=== PATIENT | male | born 1970 | race Caucasian/White ===

== ENCOUNTER 2018-07-08 19:46 | Emergency (ER) | payer MEDICAID ==
[~2018-07-08] VITALS: Ht 180.3 cm; Wt 72.7 kg
[~2018-07-08 19:46] MED LIST: ONDA8TAB6 PO
[2018-07-08 20:16] LABS: BASOPHILS % (AUTO) 0.3 % (0-1); EOSINOPHILS # (AUTO) 0.1 X10'3 (0-0.9); EOSINOPHILS % (AUTO) 1.5 % (0-6); LYMPHOCYTES % (AUTO) 31.5 % (21-51); MEAN CORPUSCULAR HEMOGLOBIN 31.7 PG (27.0-31.0); MEAN CORPUSCULAR HGB CONC 34.1 % (33.0-36.5); MEAN PLATELET VOLUME 7.4 FL (7.4-10.4); MONOCYTES # (AUTO) 0.6 X10'3 (0-0.9); MONOCYTES % (AUTO) 8.9 % (2-12); NEUTROPHILS # (AUTO) 3.7 X10'3 (1.8-7.7); NEUTROPHILS % (AUTO) 57.8 % (42-75); PLATELET COUNT 286 X10'3 (140-440); RED CELL DISTRIBUTION WIDTH 12.4 % (11.5-14.5); WHITE BLOOD COUNT 6.4 X10'3 (4.5-11.0)
[2018-07-08 20:32] LABS: ALANINE AMINOTRANSFERASE 21 U/L (12-78); ALBUMIN/GLOBULIN RATIO 1.3 (1.1-1.5); ALKALINE PHOSPHATASE 80 IU/L (46-116); ANION GAP 9 (8-16); ASPARTATE AMINO TRANSFERASE 14 U/L (10-37); BILIRUBIN,TOTAL 0.4 MG/DL (0.1-1.0); BLOOD UREA NITROGEN 9 MG/DL (7-18); BUN/CREATININE RATIO 7.4 (5.4-32.0); CALCIUM 8.9 MG/DL (8.5-10.1); CHLORIDE 101 MMOL/L (99-107); CREATININE 1.21 MG/DL (0.60-1.10); GLUCOSE 114 MG/DL (70-104); INR 1.1 INR; PARTIAL THROMBOPLASTIN TIME 30 SECONDS (22-32); POTASSIUM 4.1 MMOL/L (3.5-5.1); PROTHROMBIN TIME 11.1 SECONDS (9.0-12.0); SODIUM 138 MMOL/L (135-145); TOTAL CARBON DIOXIDE 27.9 MMOL/L (24-32); eGFR 64 ML/MIN
[2018-07-08 22:31] VITALS: BP 138/64
== END 2018-07-08 23:43 | disposition home or self-care (01) ==
LOC: ER 19:47
DX: R07.89 Other chest pain (principal); R06.02 Shortness of breath; Z88.8 Allergy status to other drugs, medicaments and biological substances; Z56.0 Unemployment, unspecified
CPT/HCPCS: 36415; 71045; 80053; 84484; 85025; 85610; 85730; 93005; 99284

== ENCOUNTER 2018-10-17 05:22 | Inpatient (IN) | payer MEDICAID ==
[2018-10-14 13:48] LABS: CLARITY,URINE CLEAR (Clear); COLOR,URINE STRAW (Yellow); GLUCOSE, URINE NEGATIVE (Neg); KETONES,URINE NEGATIVE (Neg); LEUKOCYTE ESTERASE ,URINE NEGATIVE (Neg); NITRITES, URINE NEGATIVE (Neg); OCCULT BLOOD,URINE NEGATIVE (Neg); PH,URINE 6.5 (4.8-8.0); PROTEIN,URINE NEGATIVE (Neg); UA COLLECTION TYPE CLN CATCH MIDSTREAM; UROBILINOGEN,URINE 0.2 E.U/dL (0.2-1.0)
[2018-10-14 13:52] LABS: BASOPHILS % (AUTO) 0.4 % (0-1); EOSINOPHILS % (AUTO) 0.7 % (0-6); LYMPHOCYTES # (AUTO) 1.9 X10'3 (1.1-4.8); LYMPHOCYTES % (AUTO) 26.8 % (21-51); MEAN CORPUSCULAR HEMOGLOBIN 31.2 PG (27.0-31.0); MEAN CORPUSCULAR HGB CONC 34.4 g/dL (33.0-36.5); MEAN CORPUSCULAR VOLUME 90.6 FL (78-98); MEAN PLATELET VOLUME 7.7 FL (7.4-10.4); MONOCYTES # (AUTO) 0.5 X10'3 (0-0.9); MONOCYTES % (AUTO) 6.6 % (2-12); NEUTROPHILS # (AUTO) 4.5 X10'3 (1.8-7.7); NEUTROPHILS % (AUTO) 65.5 % (42-75); PRE OP HEMATOCRIT 40.6 % (42.0-52.0); PRE OP PLATELET COUNT 261 X10'3 (140-440); RED BLOOD COUNT 4.48 X10'6 (4.70-6.10); RED CELL DISTRIBUTION WIDTH 12.5 % (11.5-14.5)
[2018-10-14 13:57] LABS: ALBUMIN 4.2 G/DL (3.4-5.0); ALBUMIN/GLOBULIN RATIO 1.4 (1.1-1.5); ALKALINE PHOSPHATASE 74 IU/L (46-116); BLOOD UREA NITROGEN 12 MG/DL (7-18); BUN/CREATININE RATIO 13.5 (5.4-32.0); CALCIUM 8.9 MG/DL (8.5-10.1); CHLORIDE 105 MMOL/L (99-107); CREATININE 0.89 MG/DL (0.60-1.10); PRE OP ALT 20 U/L (30-65); PRE OP ANION GAP 4 (8-16); PRE OP AST 18 U/L (10-37); PRE OP BILIRUB, TOTAL 0.3 MG/DL (0.0-1.0); PRE OP GLUCOSE 81 MG/DL (70-104); PRE OP SODIUM 141 MMOL/L (135-145); TOTAL CARBON DIOXIDE 32.1 MMOL/L (24-32); TOTAL PROTEIN 7.1 G/DL (6.4-8.2); eGFR > 90 ML/MIN
[2018-10-14 14:02] LABS: PRE OP INR 1.1 INR; PRE OP PROTIME 10.8 SECONDS (9.0-12.0)
[2018-10-17] VITALS (27 sets, daily range): BP systolic 114–157; BP diastolic 54–82
[~2018-10-17] VITALS: Ht 180.3 cm; Wt 78.3 kg
[~2018-10-17 05:22] MED LIST changes: +NO HOME MEDS; -ONDA8TAB6 PO; +cefazolin/dext.iso 2gm/50ml 50 ML IV ONE; +famotidine 20mg tablet PO ONE; +ringers solution, lacted 1,000 ML IV SCH
[2018-10-17] MEDS ORDERED: cefazolin/dext.iso 2gm/50ml 50 ML IV ONE (05:30)
[2018-10-17] MEDS ORDERED: famotidine 20mg tablet PO ONE (05:30)
[2018-10-17] MEDS ORDERED: LIDOcaine 1% (10mg/ml) 2ml vial ONE ×2 (05:43→06:38)
[2018-10-17] MEDS ORDERED: midazolam 2 mg/2 ml injection ONE (07:42)
[2018-10-17] MEDS ORDERED: fentaNYL /PF 50mcg/ml 5ml ampule ONE (07:43)
[2018-10-17] MEDS ORDERED: sevoflurane 250ml liquid IH ONE (07:57)
[2018-10-17] MEDS ORDERED: naloxone 2mg/2ml inj 1.5 MG in normal saline 500ml IV soln 500 ML IV PRN (09:54)
[2018-10-17] MEDS ORDERED: ringers solution, lacted 1,000 ML IV SCH (09:54)
[2018-10-17] MEDS ORDERED: proCHLORperazine 10 MG/2 ml inj IV PRN (09:55)
[2018-10-17] MEDS ORDERED: morphine 4 MG/ML inj SYRINge IV PRN ×3 (09:55→10:50)
[2018-10-17] MEDS ORDERED: meperidine/PF 25mg/ml syringe IV PRN ×2 (09:55)
[2018-10-17] MEDS ORDERED: ondansetron/PF 4mg/2ml inj IV PRN ×2 (09:55→10:50)
[2018-10-17] MEDS ORDERED: BUPIVAcaine/PF 2.5mg/ml (0.25%) 10ml vial ONE (09:59)
[2018-10-17] MEDS ORDERED: glycopyrrolate 0.2mg/ml inj ONE (10:06)
[2018-10-17] MEDS ORDERED: rocuronium 10mg/ml inj IV ONE (10:06)
[2018-10-17] MEDS ORDERED: ondansetron/PF 4mg/2ml inj ONE (10:06)
[2018-10-17] MEDS ORDERED: propofol inj 20 ML IV ONE (10:06)
[2018-10-17] MEDS ORDERED: pancuronium br 1mg/ml inj IV ONE (10:06)
[2018-10-17] MEDS ORDERED: neostigmine methylsulfate 1 MG/ML 10ml vial ONE (10:06)
[2018-10-17] MEDS ORDERED: LIDOcaine 2% (20mg/ml) 5ml vial ONE (10:06)
[2018-10-17] MEDS ORDERED: fentaNYL/PF 50MCG/1 ML 2ML syringe ONE (10:16)
[2018-10-17] MEDS ORDERED: meperidine/PF 50mg/ml syringe ONE (10:34)
--- NOTE | 2018-10-17 10:40 | NUR ---
Received from OR via BED, accompanied by Anesthesiologist DR GUZMAN and report given by Anesthesiolgist. PATIENT A&OX4, C/O PAIN, V/S WNL, NEUROVASCULAR CHECKS INTACT, 20G PIV LUE, SCD ON, DRESSING CHEST TUBE TO RIGHT SIDE CDI. RIGHT SIDE CHEST TUBE DRESSING CDI, 600CC IN DRAIN DR DAVIS AWARE, ORDER TO KEEP SBP/P BELOW 150. HYDRALIZINE TO BE GIVEN PRN. F.C DRAINING CLEAR YELLOW URINE. CENTRAL LINE TO RIGHT NECK TRIPLE LUMEN, ARTLINE TO RUE. EPIDURAL RUNNING ORDERED. MEDS GIVEN FOR PAIN SEE EMAR.
[2018-10-17] MEDS: morphine 4 MG/ML inj SYRINge IV PRN ×9 (10:49→22:24)
[2018-10-17] MEDS ORDERED: metoclopramide 5 mg/ml inj IV PRN (10:50)
[2018-10-17] MEDS ORDERED: albuterol 2.5 MG/3 ML nebule NEB PRN (10:50)
[2018-10-17] MEDS: meperidine/PF 25mg/ml syringe IV PRN ×4 (10:50→11:32)
[2018-10-17] MEDS ORDERED: naloxone 0.4 mg/ml inj IV PRN (10:50)
[2018-10-17] MEDS ORDERED: HYDROcodone/acetaminophen 10/325mg tab PO PRN ×2 (10:50)
[2018-10-17] MEDS ORDERED: hydrALAZINE 20mg/ml inj. IV ONE (10:57)
[2018-10-17] MEDS: morphine/PF injection 20 MG, BUPIVAcaine 0.5% inj/PF 250 MG in normal saline 250ml IV s... EPI SCH ×2 (11:05→14:51)
[2018-10-17 11:10] LABS: ABG OXYGEN SATURATION 98.4 % (95-98); ABG PCO2 (T) 48.4 mmHg (35.0-48.0); ABG PH (T) 7.276 (7.350-7.450); ABG PO2 (T) 148.4 mmHg (83-108); FCOHb 0.3 % (0.5-1.5); FLOW 15 L/min; FMetHb 0.3 % (0.3-1.12); FO2Hb 97.8 % (94-100); TOTAL HEMOGLOBIN 14.7 G/dl (14.0-18.0)
[2018-10-17] MEDS ORDERED: hydrALAZINE 20mg/ml inj. IV PRN (12:00)
[2018-10-17 12:26] LABS: BASOPHILS % (AUTO) 0.4 % (0-1); EOSINOPHILS % (AUTO) 0.2 % (0-6); HEMATOCRIT 40.6 % (42.0-52.0); HEMOGLOBIN 13.8 g/dl (14.0-17.9); LYMPHOCYTES # (AUTO) 1.2 X10'3 (1.1-4.8); LYMPHOCYTES % (AUTO) 10.9 % (21-51); MEAN CORPUSCULAR HEMOGLOBIN 31.2 PG (27.0-31.0); MEAN CORPUSCULAR VOLUME 91.7 FL (78-98); MEAN PLATELET VOLUME 7.3 FL (7.4-10.4); MONOCYTES # (AUTO) 0.5 X10'3 (0-0.9); MONOCYTES % (AUTO) 4.4 % (2-12); NEUTROPHILS # (AUTO) 9.3 X10'3 (1.8-7.7); NEUTROPHILS % (AUTO) 84.1 % (42-75); PLATELET COUNT 225 X10'3 (140-440); RED BLOOD COUNT 4.43 X10'6 (4.70-6.10); RED CELL DISTRIBUTION WIDTH 12.2 % (11.5-14.5)
--- NOTE | 2018-10-17 13:10 | NUR ---
PATIENT A&OX4, STATES PAIN CONTROLLED NOW, V/S WNL, NEUROVASCULAR CHECKS INTACT, 20G PIV LUE, SCD ON, DRESSING CHEST TUBE TO RIGHT SIDE CDI. RIGHT SIDE CHEST TUBE DRESSING CDI, 720CC IN DRAIN DR DAVIS AWARE, B/P BELOW 150. F/C DRAINING CLEAR YELLOW URINE. CENTRAL LINE TO RIGHT NECK TRIPLE LUMEN CVP 12, ARTLINE TO RUE. EPIDURAL RUNNING ORDERED AT 15ML/HR MAX DOSE. PATIENT TAKEN TO ICU WITH ALL BELONGINGS AND HOOKED UP TO MONITORS IN ROOM AND REPORT GIVEN TO UTILITY REPAIRER WHO HAS TAKEN OVER PATIENT CARE.
--- NOTE | 2018-10-17 14:00 | NUR ---
PT REPORT FROM Elliott MANJARREZ CHARGE NURSE. PT DOZING- DR GUZMAN IN- REMOVED EPIDURAL HE STATED THAT HE DIDDNT FEEL IT WAS WORJKING FOR THE PT. OFFERED TO REPLACE, BUT THE PT SAID NO, PT WHEN AWAKE IS ALERT AND ORIENTED, COOPERATIVE. VSS, RT CHEST DRSG DRY AND INTACT. RT CHEST TUBE SANGUINOUS DRAINAGE SMALL AMTS SINCE RR. NC REMOVED SATS WNL
--- NOTE | 2018-10-17 15:01 | NUR ---
AWOKEN WITH PAIN LEVEL OF 9- TORADOL GIVEN IV AND THEN MS 4MG AFTER 10 MINUTES- PT TO SLEEP,
[2018-10-17] MEDS: ketorolac trometh. 30mg/ml inj. IV SCH ×2 (15:15→19:55)
[2018-10-17] MEDS: ceFAZolin 1GM/D5W- ADD-VANTAGE 50 ML IV SCH (15:17)
[2018-10-17] MEDS: potassium Cl 20mEq in D5-NS 1,000 ML IV SCH (15:19)
[2018-10-17] MEDS ORDERED: ceFAZolin inj. 1,000 MG in dextrose 5%-water 50ml 50 ML IV SCH (16:00)
--- NOTE | 2018-10-17 22:40 | NUR ---
RN Note -MD Communication Dr. Spear at bedside to check on pt; was unaware that epidural had been DC'd. Ordered CADD.
[2018-10-17] MEDS: HYDROmorphone/NS 1 mg/ml CADD 50 ML IV SCH (23:33)
[2018-10-18] VITALS (17 sets, daily range): BP systolic 107–130; BP diastolic 54–77
[2018-10-18] MEDS: HYDROmorphone/NS 1 mg/ml CADD 50 ML IV SCH ×11 (01:00→23:00)
[2018-10-18] MEDS: ketorolac trometh. 30mg/ml inj. IV SCH ×4 (02:03→20:18)
[2018-10-18 02:34] LABS: BASOPHILS % (AUTO) 0.1 % (0-1); EOSINOPHILS % (AUTO) 0.1 % (0-6); HEMATOCRIT 37.4 % (42.0-52.0); HEMOGLOBIN 13.1 g/dl (14.0-17.9); LYMPHOCYTES # (AUTO) 0.9 X10'3 (1.1-4.8); LYMPHOCYTES % (AUTO) 9.7 % (21-51); MEAN CORPUSCULAR HEMOGLOBIN 31.9 PG (27.0-31.0); MEAN CORPUSCULAR HGB CONC 35.1 g/dL (33.0-36.5); MEAN CORPUSCULAR VOLUME 90.9 FL (78-98); MEAN PLATELET VOLUME 7.2 FL (7.4-10.4); MONOCYTES # (AUTO) 0.8 X10'3 (0-0.9); MONOCYTES % (AUTO) 7.8 % (2-12); NEUTROPHILS % (AUTO) 82.3 % (42-75); PLATELET COUNT 219 X10'3 (140-440); RED BLOOD COUNT 4.12 X10'6 (4.70-6.10); RED CELL DISTRIBUTION WIDTH 12.6 % (11.5-14.5); WHITE BLOOD COUNT 9.7 X10'3 (4.5-11.0)
[2018-10-18 02:39] LABS: ALANINE AMINOTRANSFERASE 21 U/L (12-78); ALBUMIN 3.2 G/DL (3.4-5.0); ALBUMIN/GLOBULIN RATIO 1.2 (1.1-1.5); ALKALINE PHOSPHATASE 62 IU/L (46-116); ANION GAP 7 (8-16); ASPARTATE AMINO TRANSFERASE 31 U/L (10-37); BILIRUBIN,TOTAL 0.8 MG/DL (0.1-1.0); BLOOD UREA NITROGEN 10 MG/DL (7-18); BUN/CREATININE RATIO 11.5 (5.4-32.0); CALCIUM 8.2 MG/DL (8.5-10.1); CHLORIDE 109 MMOL/L (99-107); CREATININE 0.87 MG/DL (0.60-1.10); GLUCOSE 125 MG/DL (70-104); POTASSIUM 3.9 MMOL/L (3.5-5.1); SODIUM 142 MMOL/L (135-145); TOTAL CARBON DIOXIDE 26.5 MMOL/L (24-32); TOTAL PROTEIN 5.8 G/DL (6.4-8.2); eGFR > 90 ML/MIN
[2018-10-18] MEDS: ceFAZolin 1GM/D5W- ADD-VANTAGE 50 ML IV SCH (02:40)
[2018-10-18] MEDS: potassium Cl 20mEq in D5-NS 1,000 ML IV SCH ×3 (05:06→16:34)
[2018-10-18] MEDS ORDERED: DEXTROSE 10 % AND 0.45 % NACL 1,000 ML IV SCH (11:30)
--- NOTE | 2018-10-18 14:47 | NUR ---
report called to RN on surgical.
--- NOTE | 2018-10-18 15:30 | NUR ---
Patient to room 344 B from ICU. Patient report received from VIRIDIANA Fish. Patient alert, oriented and in no apparent distress at this time. VSS. Call light in reach of patient.
--- NOTE | 2018-10-18 15:50 | NUR ---
Patient chest tube dressing saturated upon arrival to unit, serosanguineous drainage. Dressing reinforcement not needed at this time. Will continue to monitor patient.
--- NOTE | 2018-10-18 18:14 | NUR ---
Problems reprioritized. Patient report given, questions answered & plan of care reviewed with Suzanne Palacios RN. Patient eating dinner at this time. Visitors bedside. Call light and items of frequent use in reach of patient.
--- NOTE | 2018-10-18 18:30 | NUR ---
Patient in room [facility]. I have received report from JOSE ROBERTO KEMP and had the opportunity to ask questions and assume patient care.
[2018-10-19] VITALS: BP 155/70
[2018-10-19] MEDS: ceFAZolin 1GM/D5W- ADD-VANTAGE 50 ML IV SCH ×2 (00:31→09:28)
[2018-10-19] MEDS: HYDROmorphone/NS 1 mg/ml CADD 50 ML IV SCH ×12 (01:00→23:00)
[2018-10-19] MEDS: ketorolac trometh. 30mg/ml inj. IV SCH ×4 (02:55→20:18)
--- NOTE | 2018-10-19 06:30 | NUR ---
Problems reprioritized. Patient report given, questions answered & plan of care reviewed with SHAKIRA KEMP.
[2018-10-19 07:00] VITALS: BP 111/64
[2018-10-19] MEDS ORDERED: magnesium hydroxide 30ml (MOM) UD suspension PO ONE (11:10)
[2018-10-19 11:17] VITALS: BP 120/73
--- NOTE | 2018-10-19 12:11 | NUR ---
Patient in room [facility]. I have received report from Yvonne KEMP and had the opportunity to ask questions and assume patient care.
--- NOTE | 2018-10-19 12:35 | NUR ---
Gave report to Gillian. Pt. in a stable condition. 200 output on chest tube, drsg CDI. Fluids running per order for CADD
[2018-10-19] MEDS: potassium Cl 20mEq in D5-NS 1,000 ML IV SCH (17:24)
--- NOTE | 2018-10-19 18:26 | NUR ---
Problems reprioritized. Patient report given, questions answered & plan of care reviewed with Marleni KEMP and Estefanía Delarosa RN.
--- NOTE | 2018-10-19 18:53 | NUR ---
Patient in room [facility]. I have received report from VIRIDIANA French and had the opportunity to ask questions and assume patient care. Addendum: 10/19/18 at 1853 by Teresa Murillo RN Amended: Links added.
[2018-10-19 20:00] VITALS: BP 131/76
[2018-10-20] VITALS: BP 125/76
[2018-10-20] MEDS: HYDROmorphone/NS 1 mg/ml CADD 50 ML IV SCH ×12 (01:00→23:00)
[2018-10-20] MEDS: ketorolac trometh. 30mg/ml inj. IV SCH ×4 (01:45→19:58)
--- NOTE | 2018-10-20 06:42 | NUR ---
Problems reprioritized. Patient report given, questions answered & plan of care reviewed with VIRIDIANA OATES.
[2018-10-20 07:00] VITALS: BP 135/79
[2018-10-20 12:00] VITALS: BP 136/83
[2018-10-20 18:30] VITALS: BP 129/84
[2018-10-20] MEDS: potassium Cl 20mEq in D5-NS 1,000 ML IV SCH (19:00)
[2018-10-21] MEDS: HYDROmorphone/NS 1 mg/ml CADD 50 ML IV SCH ×12 (01:00→23:00)
[2018-10-21] MEDS: ketorolac trometh. 30mg/ml inj. IV SCH ×4 (02:16→20:06)
[2018-10-21] MEDS: CADD PCA waste documentation MC PRN (03:29)
--- NOTE | 2018-10-21 06:00 | NUR ---
Patient in room [facility]. I have received report from VIRIDIANA Tejeda and had the opportunity to ask questions and assume patient care.
--- NOTE | 2018-10-21 06:43 | NUR ---
Problems reprioritized. Patient report given, questions answered & plan of care reviewed with Mary. Addendum: 10/21/18 at 0643 by Manpreet Werner RN Amended: Links added.
[2018-10-21 07:26] VITALS: BP 124/67
[2018-10-21 11:30] VITALS: BP 121/72
[2018-10-21 18:30] VITALS: BP 117/77
[2018-10-22] VITALS: BP 110/64
[2018-10-22] MEDS: HYDROmorphone/NS 1 mg/ml CADD 50 ML IV SCH ×6 (01:00→11:00)
[2018-10-22] MEDS: ketorolac trometh. 30mg/ml inj. IV SCH ×2 (02:09→08:04)
--- NOTE | 2018-10-22 06:43 | NUR ---
Problems reprioritized. Patient report given, questions answered & plan of care reviewed with TRACI. Addendum: 10/22/18 at 0644 by Manpreet Werner RN Amended: Links added.
[2018-10-22 07:15] VITALS: BP 116/72
[2018-10-22 12:02] VITALS: BP 137/75
--- NOTE | 2018-10-22 12:13 | NUR ---
Initial: Pt admit w/ chest wall mass s/p excision. R CT in place 165ml output. PO 100% regular diet meeting wound healing needs. LBM 10/21. Will continue to monitor. Rec: 1. continue regular diet 2. wt per rx Addendum: 10/22/18 at [address] Amended: Links added.
[2018-10-22] MEDS ORDERED: traMADol 50MG tablet PO PRN (12:25)
--- NOTE | 2018-10-22 12:28 | NUR ---
Dr. Spear at bedside. Chest tube removed. Patient tolerated well.
--- NOTE | 2018-10-22 12:45 | NUR ---
Radiology called and gave me results of small right apical pneumothorax, Dr. Spear aware.
[2018-10-22] MEDS: CADD PCA waste documentation MC PRN (12:47)
--- NOTE | 2018-10-22 18:18 | NUR ---
Problems reprioritized. Patient report given, questions answered & plan of care reviewed with VIRIDIANA TOMLIN.
[2018-10-22 20:00] VITALS: BP 139/81
[2018-10-22] MEDS: HYDROcodone/acetaminophen 10/325mg tab PO PRN (21:18)
[2018-10-23] VITALS: BP 124/79
[2018-10-23] MEDS: HYDROcodone/acetaminophen 10/325mg tab PO PRN ×4 (04:07→17:35)
--- NOTE | 2018-10-23 06:13 | NUR ---
Problems reprioritized. Patient report given, questions answered & plan of care reviewed with VIRIDIANA French.
--- NOTE | 2018-10-23 06:30 | NUR ---
Patient in room [facility]. I have received report from Estefanía KEMP and had the opportunity to ask questions and assume patient care.
[2018-10-23 07:26] VITALS: BP 111/83
[2018-10-23 11:45] VITALS: BP 114/73
[2018-10-23] MEDS ORDERED: HYDR-4353 PO (17:43)
== END 2018-10-23 18:20 | disposition home or self-care (01) | DRG 680 ==
LOC: PAS 05:22 → ICU 2S 10:49 → SUR 3N 10-18 15:38
PROVIDERS: ADMIT Surgery; ATTEND Surgery
PROC: 0PU Upper Bones, Supplement (ICD-10-PCS; 2018-10-17)
PROC: 0WB80ZZ Excision of Chest Wall, Open Approach (ICD-10-PCS; principal; 2018-10-17 07:57)
DX: D49.89 Neoplasm of unspecified behavior of other specified sites (principal); R22.2 Localized swelling, mass and lump, trunk; Z88.8 Allergy status to other drugs, medicaments and biological substances; Z87.891 Personal history of nicotine dependence; Z79.899 Other long term (current) drug therapy
CPT/HCPCS: 36415; 36600; 71045; 71046; 80053; 81003; 82803; 82948; 85018; 85025; 85610; 85730; 86885; 86900; 86901; 87070; 94760; 97116; 97161; 97530; A4344; A6258; A6449; A7000; A7048; C1758; C1781; G0378; J0360; J0690; J1170; J1885; J2001; J2175; J2250; J2270; J2274; J2405; J2704; J2710; J3010; J3490; J7060; J7120

== ENCOUNTER 2018-10-30 20:02 | Emergency (ER) | payer MEDICAID ==
[~2018-10-30] VITALS: Ht 180.3 cm; Wt 77.2 kg
[~2018-10-30 20:02] MED LIST changes: +HYDR-4353 PO; -cefazolin/dext.iso 2gm/50ml 50 ML IV ONE; -famotidine 20mg tablet PO ONE; -ringers solution, lacted 1,000 ML IV SCH
[2018-10-30] MEDS ORDERED: ondansetron/PF 4mg/2ml inj IV ONE (20:55)
[2018-10-30] MEDS ORDERED: morphine 4 MG/ML inj SYRINge IV ONE (20:55)
--- NOTE | 2018-10-30 20:55 | NUR ---
dr. calle at bedside for triage
[2018-10-30] MEDS ORDERED: iohexol 300mg/ml 100ml inj. ONE (21:16)
[2018-10-30 21:36] LABS: BASOPHILS # (AUTO) 0.1 X10'3 (0-0.2); BASOPHILS % (AUTO) 0.7 % (0-1); EOSINOPHILS # (AUTO) 0.2 X10'3 (0-0.9); EOSINOPHILS % (AUTO) 2.3 % (0-6); HEMATOCRIT 38.4 % (42.0-52.0); HEMOGLOBIN 13.3 g/dl (14.0-17.9); LYMPHOCYTES # (AUTO) 1.9 X10'3 (1.1-4.8); LYMPHOCYTES % (AUTO) 22.2 % (21-51); MEAN CORPUSCULAR HEMOGLOBIN 30.9 PG (27.0-31.0); MEAN CORPUSCULAR HGB CONC 34.7 g/dL (33.0-36.5); MEAN CORPUSCULAR VOLUME 89.2 FL (78-98); MEAN PLATELET VOLUME 6.9 FL (7.4-10.4); MONOCYTES # (AUTO) 0.5 X10'3 (0-0.9); MONOCYTES % (AUTO) 5.7 % (2-12); NEUTROPHILS # (AUTO) 6.1 X10'3 (1.8-7.7); NEUTROPHILS % (AUTO) 69.1 % (42-75); PLATELET COUNT 440 X10'3 (140-440); RED BLOOD COUNT 4.31 X10'6 (4.70-6.10); RED CELL DISTRIBUTION WIDTH 12.1 % (11.5-14.5); WHITE BLOOD COUNT 8.8 X10'3 (4.5-11.0)
[2018-10-30 21:44] LABS: ALANINE AMINOTRANSFERASE 21 U/L (12-78); ALBUMIN 3.5 G/DL (3.4-5.0); ALBUMIN/GLOBULIN RATIO 0.9 (1.1-1.5); ALKALINE PHOSPHATASE 78 IU/L (46-116); ANION GAP 11 (8-16); ASPARTATE AMINO TRANSFERASE 15 U/L (10-37); BILIRUBIN,TOTAL 0.2 MG/DL (0.1-1.0); BLOOD UREA NITROGEN 11 MG/DL (7-18); BUN/CREATININE RATIO 13.4 (5.4-32.0); CALCIUM 9.2 MG/DL (8.5-10.1); CHLORIDE 101 MMOL/L (99-107); CREATININE 0.82 MG/DL (0.60-1.10); GLUCOSE 90 MG/DL (70-104); POTASSIUM 3.7 MMOL/L (3.5-5.1); SODIUM 139 MMOL/L (135-145); TOTAL CARBON DIOXIDE 27.5 MMOL/L (24-32); TOTAL PROTEIN 7.4 G/DL (6.4-8.2); eGFR > 90 ML/MIN
[2018-10-30 21:50] LABS: PARTIAL THROMBOPLASTIN TIME 30 SECONDS (22-32); PROTHROMBIN TIME 10.5 SECONDS (9.0-12.0)
--- NOTE | 2018-10-30 21:52 | NUR ---
Drsg to surgical incision site, right back, removed, serosang drng noted on drsg. slight pinkness to incision, with suture intact to medial aspect. chest tube incision site with sutures noted, slough to wound bed
[2018-10-31 00:44] VITALS: BP 117/93
== END 2018-10-31 00:45 | disposition home or self-care (01) ==
LOC: ER 20:03
DX: J95.89 Other postprocedural complications and disorders of respiratory system, not elsewhere classified (principal); R07.89 Other chest pain; R53.81 Other malaise; Z88.8 Allergy status to other drugs, medicaments and biological substances; Z79.899 Other long term (current) drug therapy; Z56.0 Unemployment, unspecified; Y83.8 Other surgical procedures as the cause of abnormal reaction of the patient, or of later complication, without mention of misadventure at the time of the procedure; Y92.89 Other specified places as the place of occurrence of the external cause
CPT/HCPCS: 36415; 71260; 80053; 83605; 83735; 84145; 85025; 85610; 85730; 87040; 93005; 96374; 96375; 99284; J2270; J2405; Q9967

== ENCOUNTER 2020-01-28 17:30 | Emergency (ER) | payer MEDICAID ==
[~2020-01-28] VITALS: Ht 175.3 cm; Wt 72.9 kg
[~2020-01-28 17:30] MED LIST changes: -HYDR-4353 PO; +LIDOcaine 1% W/epiNEPHrine 1:200,000 10ml vial ONE
[2020-01-28 19:06] VITALS: BP 132/82
== END 2020-01-28 19:04 | disposition home or self-care (01) ==
LOC: ER 17:31
DX: S61.512A Laceration without foreign body of left wrist, initial encounter (principal); Z56.0 Unemployment, unspecified; Z88.6 Allergy status to analgesic agent; W45.8XXA Other foreign body or object entering through skin, initial encounter; Y93.89 Activity, other specified; Y92.89 Other specified places as the place of occurrence of the external cause; Y99.8 Other external cause status
CPT/HCPCS: 12001; 99282